=== PATIENT | female | born 1975 | race Caucasian/White ===

== ENCOUNTER 2022-11-30 19:11 | Emergency (ER) | payer OTHER ==
[2022-11-30 19:49] VITALS: BP 127/84; PULSE 104; RESP 20; TEMP 100.8; BMI 23.6
[2022-11-30] MEDS ORDERED: IBUPROFEN 600 MG TABLET (FP) PO ONE ×2 (20:09→20:11)
[2022-11-30 20:38] LABS: PH,URINE 5.5 (5.0-8.0); URINE APPEARANCE CLEAR; URINE BILIRUBIN NEGATIVE (NEGATIVE); URINE COLOR YELLOW; URINE GLUCOSE (UA) NEGATIVE (NEGATIVE); URINE KETONE NEGATIVE (NEGATIVE); URINE LEUK ESTERASE NEGATIVE (NEGATIVE); URINE NITRITE NEGATIVE (NEGATIVE); URINE PROTEIN NEGATIVE (NEGATIVE); URINE UROBILINOGEN 0.2 mg/dL (0.2-1.0)
[2022-11-30 20:44] LABS: THROAT:GRP A STREP NOT DETECTED (NOTDETECTED)
== END 2022-11-30 21:03 | disposition home or self-care (01) ==
LOC: JERFT 19:11 → JER 19:11 → JERFT 21:03
DX: R50.9 Fever, unspecified (principal); M79.10 Myalgia, unspecified site; M54.50 Low back pain, unspecified; R53.83 Other fatigue; Z20.822 Contact with and (suspected) exposure to COVID-19
CPT/HCPCS: 0241U-QW; 81003; 87086; 87651; 99283-25